=== PATIENT | male | born 1965 | race Caucasian/White ===

== ENCOUNTER 2025-03-10 07:45 | Outpatient (CLI) | payer BC ==
[2025-03-10 08:37] LABS: Cardiac Risk 3.3 (Less than 4.5); Cholesterol 153.0 mg/dl (< 200 Desired); HDL Cholesterol 47.0 mg/dL (>60 Neg Risk); LDL Cholesterol, Calculated 71.0 mg/dL; Triglycerides 176.0 mg/dL (Less than 150)
== END 2025-03-10 07:46 | disposition home or self-care (01) ==
LOC: MADLAB 07:45
PROVIDERS: ATTEND Family Medicine
DX: Z00.00 Encounter for general adult medical examination without abnormal findings (principal); E11.9 Type 2 diabetes mellitus without complications
CPT/HCPCS: 36415; 80061